=== PATIENT | male | born 2000 | race Caucasian/White ===

== ENCOUNTER → 2025-06-24 | Outpatient (CLI) | payer OTHER, SELFPAY ==
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
== END | disposition home or self-care (01) ==
LOC: CDIM 09:32
PROVIDERS: Referring Provider Nurse Practitioner Family; Visit Provider Family Medicine
DX: S80.02XA Contusion of left knee, initial encounter (principal); S33.5XXA Sprain of ligaments of lumbar spine, initial encounter; S90.31XA Contusion of right foot, initial encounter; S59.902A Unspecified injury of left elbow, initial encounter; S23.3XXA Sprain of ligaments of thoracic spine, initial encounter; S93.401A Sprain of unspecified ligament of right ankle, initial encounter; S13.4XXA Sprain of ligaments of cervical spine, initial encounter; S69.92XA Unspecified injury of left wrist, hand and finger(s), initial encounter; V89.2XXA Person injured in unspecified motor-vehicle accident, traffic, initial encounter; M53.82 Other specified dorsopathies, cervical region
CPT/HCPCS: 72050; 72070; 72110; 73080; 73110; 73562; 73610; 73630